=== PATIENT | female | born 1990 | race Caucasian/White ===

== ENCOUNTER 2022-01-10 08:30 | Outpatient (CLI) | payer OTHER ==
[2022-01-10 21:44] LABS: SARS-CoV-2 PCR by NAA Not Detected (NotDetected)
== END 2022-01-10 08:31 | disposition home or self-care (01) ==
LOC: CSHLAB 08:30
PROVIDERS: ATTEND Student in an Organized Health Care Education/Training Program
DX: Z20.822 Contact with and (suspected) exposure to COVID-19 (principal)
CPT/HCPCS: U0003; U0005

== ENCOUNTER 2022-01-14 16:22 | Inpatient (IN) | payer MEDICAID, OTHER, SELFPAY ==
[~2022-01-14 16:22] MED LIST: Bupivacaine 0.25% HCL 30 ML VIAL ONE; Bupivacaine HCl 0.5%/Epinephrine 1:200,000/PF 30 ml Vial ONE; Terbutaline Sulfate 1 MG/ML VIAL ONE
[2022-01-14] MEDS ORDERED: Carboprost 250 MCG/ML AMP IM PRN (20:27)
[2022-01-14] MEDS ORDERED: Ibuprofen 800 MG TAB PO PRN (20:27)
[2022-01-14] MEDS ORDERED: Methylergonovine 0.2 MG/ML VIAL IM PRN (20:27)
[2022-01-14] MEDS ORDERED: HYDROcodone/Acetaminophen 5/325 mg Tablet PO PRN (20:27)
[2022-01-14] MEDS ORDERED: Acetaminophen 500 MG TAB PO PRN (20:27)
[2022-01-14] MEDS ORDERED: Lidocaine 1% (PF) 30 ML VIAL SC PRN (20:27)
[2022-01-14] MEDS ORDERED: Ondansetron PF 4 MG/2 ML Vial IVP PRN (20:27)
[2022-01-14] MEDS ORDERED: Misoprostol 200 MCG TAB PR PRN (20:27)
[2022-01-14] MEDS ORDERED: hydrALAZINE 20 MG/ML VIAL SLOW IVP PRN (20:27)
[2022-01-14] MEDS ORDERED: Promethazine HCl 25 MG/ML VIAL IM PRN (20:27)
[2022-01-14] MEDS ORDERED: NS w/ Oxytocin 30 units 500 ML IV SCH (20:30)
[2022-01-14 20:45] VITALS: BMI 29.2
[2022-01-14] MEDS ORDERED: Penicillin G Potassium 5 MILL.UNITS in Sodium Chloride 0.9% 100 ML IVPB SCH (21:00)
[2022-01-14 21:30] LABS: Hemoglobin 11.4 g/dL (12.0-15.5); Mean Corpuscular HGB CONC 33.2 g/dL (32.0-36.0); Mean Corpuscular Hemoglobin 29.3 pg (27.0-33.0); Mean Corpuscular Volume 88.2 fl (81.6-98.3); Mean Platelet Volume 10.7 fl (7.4-10.4); Platelet Count 222 10x3/uL (150-450); Red Blood Cell (RBC) Count 3.89 10x6/uL (3.90-5.03)
[2022-01-14 21:58] LABS: Hep B Surf Ag Non-Reactive S/CO (NonReactive); Syphilis Antibody Nonreactive (Nonreactive); Syphilis Antibody Index 0.04 S/CO (<1.00 Non-Reactive)
[2022-01-14 22:02] LABS: HBSAg Index 0.17 S/CO (0-0.99)
[2022-01-15] MEDS ORDERED: Penicillin G 2.5 MILL.units 2.5 MILL.UNITS in Premix Bag 1 BAG IVPB SCH (01:00)
[2022-01-15 02:49] LABS: Glucose 107 mg/dL (70-105)
[2022-01-15] MEDS ORDERED: Lidocaine 1% (PF) 30 ML VIAL SC PRN (10:52)
[2022-01-15] MEDS ORDERED: Penicillin G Potassium 5 MILL.UNITS in Sodium Chloride 0.9% 100 ML IVPB SCH ×2 (11:00→16:45)
[2022-01-15] MEDS ORDERED: NS w/ Oxytocin 30 units 500 ML IV SCH (11:00)
[2022-01-15] MEDS ORDERED: Docusate 100 MG CAP PO PRN (11:00)
[2022-01-15] MEDS ORDERED: ceFAZolin 2 GM/Dextrose 50 ML 2 GM in Premix Bag 1 BAG IVPB SCH (12:00)
[2022-01-15] MEDS ORDERED: Famotidine/PF 20 mg/2ml Vial SLOW IVP PRN (12:00)
[2022-01-15] MEDS ORDERED: Bicitra 30 ML UDCUP PO PRN (12:00)
[2022-01-15] MEDS: Penicillin G 2.5 MILL.units 2.5 MILL.UNITS in Premix Bag 1 BAG IVPB SCH (21:00)
[2022-01-16] MEDS ORDERED: Fentanyl 2 mcg/Bup 0.1% Cadd 100 ML ONE (00:38)
[2022-01-16] MEDS: Penicillin G 2.5 MILL.units 2.5 MILL.UNITS in Premix Bag 1 BAG IVPB SCH ×5 (01:00→21:42)
[2022-01-16] MEDS ORDERED: Promethazine HCl 25 MG/ML VIAL IM PRN ×2 (01:41→16:57)
[2022-01-16] MEDS ORDERED: Lactated Ringer's 500 ML IV PRN (01:41)
[2022-01-16] MEDS ORDERED: Hydrocerin (Eucerin) Cream 120 gm Jar TOP PRN ×2 (01:41→16:57)
[2022-01-16] MEDS ORDERED: Acetaminophen 325 MG TAB PO PRN ×2 (01:41→21:24)
[2022-01-16] MEDS ORDERED: Naloxone HCl 0.4 mg/ml Vial IVP PRN ×4 (01:41→16:57)
[2022-01-16] MEDS ORDERED: diphenhydrAMINE 50 MG/ML VIAL IVP PRN ×2 (01:41→16:57)
[2022-01-16] MEDS ORDERED: Ondansetron PF 4 MG/2 ML Vial IVP PRN ×3 (01:41→21:24)
[2022-01-16] MEDS ORDERED: ePHEDrine Sulfate 50 MG/10 ML VIAL SLOW IVP PRN (01:41)
[2022-01-16] MEDS ORDERED: Communication Order-Pharmacy FS SCH ×2 (01:45→17:00)
[2022-01-16] MEDS ORDERED: Fentanyl 2 mcg/Bupivacaine 0.1% Cassette 100 ML EPIDURAL SCH (01:45)
[2022-01-16] MEDS ORDERED: Lactated Ringer's 500 ML IV SCH (15:15)
[2022-01-16] MEDS ORDERED: Bicitra 30 ML UDCUP PO PRN (15:49)
[2022-01-16] MEDS ORDERED: Famotidine/PF 20 mg/2ml Vial SLOW IVP PRN (15:49)
[2022-01-16] MEDS ORDERED: ceFAZolin 2 GM/Dextrose 50 ML IVPB ONE (15:49)
[2022-01-16] MEDS ORDERED: Azithromycin 500 MG VIAL ONE (15:50)
[2022-01-16] MEDS ORDERED: ceFAZolin 2 GM/Dextrose 50 ML 2 GM in Premix Bag 1 BAG IVPB SCH (16:00)
[2022-01-16] MEDS ORDERED: Azithromycin 500 MG in Sodium Chloride 0.9% 250 ML 250 ML IVPB SCH (16:00)
[2022-01-16] MEDS ORDERED: Morphine PF 10 MG/10 ML VIAL ONE (16:05)
[2022-01-16] MEDS ORDERED: Lidocaine 2% MPF 10 ML AMP (For Epidural Use) ONE (16:05)
[2022-01-16] MEDS ORDERED: Oxytocin 10 UNITS/ML VIAL ONE (16:05)
[2022-01-16] MEDS ORDERED: Promethazine HCl 25 MG SUPP PR PRN (16:57)
[2022-01-16] MEDS ORDERED: Meperidine HCl/PF 25 MG/ML VIAL SLOW IVP PRN (16:57)
[2022-01-16] MEDS ORDERED: Fentanyl 100 MCG/2 ML VIAL SLOW IVP PRN (16:57)
[2022-01-16] MEDS ORDERED: Ketorolac Tromethamine 30 MG/ML VIAL IVP PRN (16:57)
[2022-01-16] MEDS ORDERED: Naloxone HCl 0.4 mg/ml Vial IV PRN (16:57)
[2022-01-16] MEDS ORDERED: Ondansetron HCl/PF 4 MG/2 ML Vial IVP PRN (16:57)
[2022-01-16] MEDS ORDERED: L&D-Morphine 4 MG/ML VIAL SLOW IVP PRN (16:57)
[2022-01-16] MEDS ORDERED: Ketorolac Tromethamine 30 MG/ML VIAL IVP SCH (17:00)
[2022-01-16] MEDS ORDERED: Phytonadione Neonatal 1 MG/0.5 ML AMP ONE (17:40)
[2022-01-16] MEDS ORDERED: Erythromycin Base 0.5% Oint 1 GM TUBE ONE (17:40)
[2022-01-16] MEDS: Dextrose 5%-Lactated Ringers 1,000 ML IV SCH (19:24)
[2022-01-16] MEDS ORDERED: diphenhydrAMINE 25 MG CAP PO PRN (21:24)
[2022-01-16] MEDS ORDERED: Lanolin Ointment 7 GM TUBE TOP PRN (21:24)
[2022-01-16] MEDS ORDERED: Varicella virus, LIVE 0.5 ML VIAL SC ONE (21:24)
[2022-01-16] MEDS ORDERED: hydrALAZINE 20 MG/ML VIAL SLOW IVP PRN (21:24)
[2022-01-16] MEDS ORDERED: Bisacodyl 10 MG SUPP PR PRN (21:24)
[2022-01-16] MEDS ORDERED: Boostrix 0.5 ML (Tdap) VIAL IM ONE (21:24)
[2022-01-16] MEDS ORDERED: Measles/Mumps/Rubella 10 MCG/0.5 ML VIAL SC ONE (21:24)
[2022-01-16] MEDS: Ferrous Sulfate 325 MG TAB PO SCH (21:38)
[2022-01-16] MEDS: Docusate 100 MG CAP PO SCH (21:41)
[2022-01-17 04:48] LABS: Hemoglobin 10.5 g/dL (12.0-15.5); Mean Corpuscular HGB CONC 33.2 g/dL (32.0-36.0); Mean Corpuscular Hemoglobin 29.2 pg (27.0-33.0); Mean Corpuscular Volume 87.8 fl (81.6-98.3); Mean Platelet Volume 10.4 fl (7.4-10.4); Platelet Count 163 10x3/uL (150-450); White Blood Cell (WBC) Count 11.1 10x3/uL (3.5-10.5)
[2022-01-17] MEDS ORDERED: HYDROcodone/Acetaminophen 5/325 mg Tablet PO PRN (05:00)
[2022-01-17] MEDS: Ibuprofen 800 MG TAB PO SCH ×3 (05:57→21:46)
[2022-01-17] MEDS ORDERED: Ibuprofen 800 MG TAB PO SCH (07:00)
[2022-01-17] MEDS: Docusate 100 MG CAP PO SCH ×2 (08:46→19:51)
[2022-01-17] MEDS: Prenatal Vitamin 1 TAB PO SCH (08:46)
[2022-01-17] MEDS: Polyethylene Glycol 3350 17 GM Packet PO SCH (08:46)
[2022-01-17] MEDS: Ferrous Sulfate 325 MG TAB PO SCH (10:38)
[2022-01-17] MEDS: HYDROcodone/Acetaminophen 5/325 mg Tablet PO PRN ×2 (10:46→21:47)
[2022-01-17] MEDS: Simethicone Chewable 80 MG TAB PO PRN (19:51)
[2022-01-18] MEDS: Ferrous Sulfate 325 MG TAB PO SCH ×2 (01:51→07:49)
[2022-01-18] MEDS: HYDROcodone/Acetaminophen 5/325 mg Tablet PO PRN ×2 (03:38→09:34)
[2022-01-18] MEDS: Simethicone Chewable 80 MG TAB PO PRN (03:45)
[2022-01-18] MEDS: Ibuprofen 800 MG TAB PO SCH (06:16)
[2022-01-18 08:18] VITALS: BP 116/66; TEMP 97.7
[2022-01-18] MEDS: Polyethylene Glycol 3350 17 GM Packet PO SCH (09:29)
[2022-01-18] MEDS: Prenatal Vitamin 1 TAB PO SCH (09:29)
[2022-01-18] MEDS: Docusate 100 MG CAP PO SCH (09:29)
== END 2022-01-18 12:16 | disposition home or self-care (01) | DRG 788 ==
LOC: CSHLD 19:27 → CSHPP 01-16 21:08
PROVIDERS: ADMIT Student in an Organized Health Care Education/Training Program; ATTEND Student in an Organized Health Care Education/Training Program
PROC: 3E033VJ Introduction of Other Hormone into Peripheral Vein, Percutaneous Approach (ICD-10-PCS; 2022-01-15)
PROC: 0U7C7ZZ Dilation of Cervix, Via Natural or Artificial Opening (ICD-10-PCS; 2022-01-15)
PROC: 10D00Z1 Extraction of Products of Conception, Low, Open Approach (ICD-10-PCS; principal; 2022-01-16)
PROC: 0DNW0ZZ Release Peritoneum, Open Approach (ICD-10-PCS; 2022-01-16)
PROC: 10907ZC Drainage of Amniotic Fluid, Therapeutic from Products of Conception, Via Natural or Artificial Opening (ICD-10-PCS; 2022-01-16)
PROC: 10H07YZ Insertion of Other Device into Products of Conception, Via Natural or Artificial Opening (ICD-10-PCS; 2022-01-16)
DX: O34.211 Maternal care for low transverse scar from previous cesarean delivery (principal); O48.0 Post-term pregnancy; Z37.0 Single live birth; Z3A.40 40 weeks gestation of pregnancy; O99.824 Streptococcus B carrier state complicating childbirth; D64.9 Anemia, unspecified; O99.02 Anemia complicating childbirth; O40.3XX0 Polyhydramnios, third trimester, not applicable or unspecified; O76 Abnormality in fetal heart rate and rhythm complicating labor and delivery; O62.1 Secondary uterine inertia; O77.0 Labor and delivery complicated by meconium in amniotic fluid; O24.420 Gestational diabetes mellitus in childbirth, diet controlled; O69.81X0 Labor and delivery complicated by cord around neck, without compression, not applicable or unspecified; O99.892 Other specified diseases and conditions complicating childbirth; N73.6 Female pelvic peritoneal adhesions (postinfective); O66.41 Failed attempted vaginal birth after previous cesarean delivery
CPT/HCPCS: 36415; 36416; 82947; 85027; 86780; 86850; 86900; 86901; 87340; 88307; J1885; J2274; J2540; J2590; J3105; J3490; S0020